=== PATIENT | male | born 1935 | race Caucasian/White ===

== ENCOUNTER 2017-03-22 09:10 | Observation (INO) | payer MEDICARE, OTHER ==
--- NOTE | 2017-03-22 11:55 | RAD ---
INDICATION: Fever COMPARISON: Chest x-ray January 26, 2017 TECHNIQUE: An AP portable view obtained at 0140 hours is submitted. FINDINGS: Bones/Soft Tissues: There are no acute bony findings. Cardiomediastinal: The cardiomediastinal silhouette is normal. Lungs: There are no infiltrates. Pleura: There are no pleural effusions. Other: None IMPRESSION: NO ACTIVE DISEASE
[2017-03-22] MEDS ORDERED: Ibuprofen TAB* 600 MG PO ONE (12:06)
[2017-03-22 12:18] LABS: Hematocrit 39 % (42-52); Mean Corpuscular HGB Conc 33 g/dl (31-36); Mean Corpuscular Hemoglobin 30 pg (27-31); Mean Corpuscular Volume 91 fL (80-94); Mean Platelet Volume 7 um3 (7.4-10.4); Red Blood Count 4.31 10^6/ul (4.0-5.4); Red Cell Distribution Width 14 % (10.5-15)
[2017-03-22 12:39] LABS: Albumin 3.2 g/dL (3.2-5.2); Calcium 8.5 mg/dL (8.6-10.3); EGFR African American 78.3 (>60); EGFR Non-African American 60.9 (>60); Potassium 4.2 mmol/L (3.5-5.0); Total Protein 6.2 g/dL (6.4-8.9)
[2017-03-22 12:43] LABS: Troponin I 0.04 ng/mL (<0.04)
[2017-03-22] MEDS: NS 0.9% 1000 ML* 2,000 ML IV ONE ×2 (12:48→12:49)
[2017-03-22 12:54] LABS: Urine Bacteria Absent (Absent); Urine Bilirubin Negative (Negative); Urine Glucose Negative (Negative); Urine Nitrite Negative (Negative)
[2017-03-22] MEDS ORDERED: Ondansetron INJ* 2 MG/ML VIAL IV PRN (13:44)
[2017-03-22] MEDS ORDERED: NS 0.9% 1000 ML* 1,000 ML IV SCH (13:45)
--- NOTE | 2017-03-22 14:14 | RAD ---
INDICATION: Intracranial injury COMPARISON: None TECHNIQUE: Noncontrast axial source images were acquired from the skull base to the vertex. FINDINGS: Ventricles/sulci: There is cortical atrophy with compensatory dilatation of the CSF spaces. Brain parenchyma: There is mild periventricular and subcortical white matter change compatible with chronic ischemia. Intracranial hemorrhage:None. Extra-axial spaces: There are no abnormal extra axial fluid collections or evidence of extra-axial mass. Calvarium: There is no calvarial fracture or other calvarial abnormality. Scalp: There is no evidence of scalp or extracalvarial soft tissue abnormality. Paranasal sinuses/mastoid: The paranasal sinuses and mastoid air cells are clear. Other: None. IMPRESSION: NO ACUTE INTRACRANIAL FINDINGS
--- NOTE | 2017-03-22 14:17 | RAD ---
INDICATION: Fall. Possible neck injury. COMPARISON: None TECHNIQUE: Noncontrast axial source images was performed from the skull base to the thoracic inlet. Coronal and and sagittal reformatted images were generated. FINDINGS: Vertebrae: There is no fracture or acute focal bony lesion. There are degenerative changes with disc space narrowing at C5-C6 and C6-C7. There is endplate sclerosis with multilevel facet arthropathy. Alignment: The craniocervical junction appears normal. The cervical vertebrae are normally aligned. Central Canal: There are no significant CT abnormalities of the central canal or foramina. MR imaging is a more sensitive method to evaluate the canal and foramina. Intervertebral disc spaces: The remaining disc spaces are maintained. Brain: The visualized brain appears unremarkable. Soft tissues: The visualized soft tissue elements of the neck are unremarkable. The prevertebral soft tissues appear normal. The lung apices are clear. 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 NO ACUTE FINDINGS
[2017-03-22 14:24] LABS: C Reactive Protein 180.7 mg/L (< 5.00)
[2017-03-22 14:54] LABS: Erythrocyte Sed Rate 80 mm/Hr (0-40)
[2017-03-22] MEDS: Heparin VIAL(*) 5000 UNITS/ML VIAL (FIVE THOUSAND) SUBCUT SCH ×2 (15:47→21:51)
[2017-03-22] MEDS: DOXYcycline CAP(*) 100 MG PO SCH ×2 (15:47→21:52)
[2017-03-22] MEDS: Calcium Carbonate CHEW TAB* 500 MG (TUMS) PO PRN ×2 (18:28→23:12)
[2017-03-22] MEDS: Acetaminophen TAB* 325 MG PO PRN (21:59)
--- NOTE | 2017-03-22 23:02 | HP ---
CC: Dr. Manriquez* HISTORY AND PHYSICAL: DATE OF ADMISSION: 03/22/17 PRIMARY CARE PROVIDER: Dr. Manriquez. ATTENDING PHYSICIAN WHILE IN THE HOSPITAL: Rani Diaz DO* (report dictated by Ap Larios NP). CHIEF COMPLAINT: 1. Fever. 2. Dizziness. 3. Fall. HISTORY OF PRESENT ILLNESS: Mr. Powell is an 82-year-old male patient. 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 He comes in to the ER today stating that the last 2 weeks, he has been increasingly fatigued, just not feeling well; to about a week and a half ago, he had pain, basically radiating from his neck down into his shoulders down to his legs that lasted a couple of days and then it has been gone away. He went and saw his primary for the fatigue. She sent off some basic lab work. It was noted that he was febrile there and it was also noted that CRP was 180. He was started on prednisone 20 mg a day, 10 mg p.o. b.i.d. He states that he has just not been feeling well. He has been feeling very fatigued. There has been no nausea, vomiting, or any dysuria or frequency. There has been no seizures or loss of consciousness. He says he has just been weak anytime he goes out to do anything. If he just mows his lawn, he feels like he has done a whole day's work and he is tired, and he has been sleeping more. There has been no headache currently, no neck pain. He denied any photophobia. There has been no vomiting. No abdominal pain. No cough. No chest pain. No recent trips or travel. He denies having any rashes or any joint aches with the exception that one day where he had pain all over, but no unilateral joint pain. There was concern though, because today he got up, he felt very dizzy and he actually fell to the floor. He did not hit his head or neck according to the patient. The was concerned because she heard a thud upstairs and she called Dr. Manriquez and it was noted at home that he had a fever of 102 and it was recommended that he come into the ER to be further evaluated for cultures and workup. PAST MEDICAL HISTORY: Significant for: 1. Hypertension. 2. History of PE secondary to an injury. 3. BPH. 4. Nephrolithiasis. 5. Spinal tumor. PAST SURGICAL HISTORY: 1. He has had a left and right total hip replacement. 2. He has had back surgeries. HOME MEDICATIONS: The only medicine he is currently taking is, prednisone 10 mg p.o. b.i.d., last dose was yesterday. ALLERGIES: To medications include CEPHALOSPORINS and PENICILLINS. FAMILY HISTORY: Both his parents, he said of old age according to him. SOCIAL HISTORY: He is a former smoker. He used to drink alcohol. He is . His surrogate decision maker is his . REVIEW OF SYSTEMS: There is a documented fever. Denied any significant weight change. There is no double vision. There is no ear discharge. He denies having any rhinorrhea. No sore throat. No thyroid enlargement. Denies having any chest pain. There is no orthopnea. There is no nocturnal dyspnea. There is no abdominal pain. No nausea, no vomiting. No dysuria, no frequency. There is no seizure, no loss of consciousness. No pruritus and no skin ulcerations. Review of 14 systems completed, all others negative. PHYSICAL EXAMINATION GENERAL: Mr. Powell is an 82-year-old male patient. He appears to be well nourished, well developed. He does not appear to be in any acute distress. HEENT: Head is atraumatic and normocephalic. Eyes: EOMs are intact. Sclerae are anicteric and not pale. Throat: Oral mucosa appears to be moist. No oropharyngeal erythema. NECK: Supple. LUNGS: Clear to auscultation bilaterally. No wheezes, rales, or rhonchi. HEART: Sounds S1 and S2, regular rate and rhythm. No murmurs, rubs, or gallops. ABDOMEN: Soft, flat, nontender. Bowel sounds are present. EXTREMITIES: Pulses were 2+ throughout. He had no focal joint tenderness, pain or rash. He is able to move all 4 extremities with 5/5 strength. NEUROLOGIC: Awake, alert, oriented x3. He had no meningeal signs. His correction officer city or county jail were equal. Tongue was midline. He had no gross focal deficits. SKIN: Intact. There was no rashes noted. LABORATORY DATA/DIAGNOSTIC STUDIES: His labs today revealed a WBC of 8.0, RBC of 4.31, hemoglobin 13.0, hematocrit 39, platelet count of 152,000. His INR was 1.07. PTT of 24.7. Sodium 134, potassium 4.2, chloride of 104, bicarb 21, BUN 23, creatinine 1.15, glucose 107, lactic 0.8, calcium 9.5, total bilirubin 1 , AST 35, ALT 29, alk phos 127, troponin 0.04, albumin was 3.2. Urine showed 2 + protein, 1+ blood, 2+ RBC. He did have a chest x-ray obtained today. Under my review, I did not appreciate any acute infiltrate. Radiology read it as no acute disease. He did have an EKG obtained today which showed a normal sinus rhythm with a rate of 76. No ST elevations or T-wave inversions were noted. Appeared to be a benign EKG. Old medical records were reviewed. ASSESSMENT AND PLAN: Mr. Powell is an 82-year-old male patient coming in to the ER today with complaints of fever and now had elevated troponin. He will admitted under observation status for: 1. Fever. Etiology of this is unclear. Flu swab was sent by the ER, but I think it was less likely given the rare flu season; however, I do think we should check a Lyme serology. We will get blood cultures. I am holding on antibiotics, because I do not have an obvious source. I did leave a message with our ID physician to see if there was any other recommendation that they may have. We are going to hydrate the patient. We will treat his fever empirically. This could be rheumatologic as well. I am going to check the ESR and CRP. According to the family, the CRP with Dr. Manriquez was 180. We will see if this is going up or down and we will continue to monitor. 2. Indeterminate troponin, etiology is unclear. It could just be demand ischemia from the elevated fevers, but he did have a dizzy spell today, so I will place him on telemetry, monitor this, and get an echocardiogram and cycle troponins. 3. Hypertension. Again, not an active issue currently. 4. History of pulmonary embolism, not an active issue. 5. Benign prostatic hypertrophy. He can follow with his primary. 6. History of spinal tumor. He will go ahead and continue to follow with his primary. 7. DVT prophylaxis. We will go ahead and put him on heparin subcu. 8. Code status. Full code. 9. Fluids, electrolytes, and nutrition. He can have a regular diet. TIME SPENT: Time spent on the admission was 60 minutes; greater than half the time spent [id number] with the patient obtaining my history and physical; other half time was spent going over the plan of care with the patient and implementing the plan of care. I did discuss the plan of care with my attending, Dr. Diaz, she is in agreement. AP LARIOS, PRISCILLA [id number]/[facility] #: [id number] PREETHI
[2017-03-23 05:26] LABS: Hematocrit 36 % (42-52); Hemoglobin 12.1 g/dl (14.0-18.0); Mean Corpuscular HGB Conc 34 g/dl (31-36); Mean Corpuscular Hemoglobin 31 pg (27-31); Mean Corpuscular Volume 91 fL (80-94); Mean Platelet Volume 7 um3 (7.4-10.4); Red Blood Count 3.97 10^6/ul (4.0-5.4); Red Cell Distribution Width 15 % (10.5-15); White Blood Count 7.5 10^3/ul (3.5-10.8)
[2017-03-23 05:56] LABS: BUN/Creatinine Ratio 19.1 (8-20); Calcium 8.1 mg/dL (8.6-10.3); EGFR African American 78.3 (>60); EGFR Non-African American 60.9 (>60)
[2017-03-23] MEDS: Heparin VIAL(*) 5000 UNITS/ML VIAL (FIVE THOUSAND) SUBCUT SCH ×2 (06:16→15:05)
[2017-03-23] MEDS: Acetaminophen TAB* 325 MG PO PRN ×2 (06:20→16:41)
[2017-03-23 06:27] LABS: Potassium 4.3 mmol/L (3.5-5.0)
[2017-03-23] MEDS: DOXYcycline CAP(*) 100 MG PO SCH (09:30)
[2017-03-23 10:37] LABS: C Reactive Protein 193.73 mg/L (< 5.00)
--- NOTE | 2017-03-23 16:47 | DS ---
DOA: 03/22/2017 DOD: 03/23/2017 Care Team: Admitting Provider: Dr. Rani Diaz Infectious disease consultation: Dr. Yariel Haque Attending Provider: Bharat Lomas PA-C Discharge Provider: HUY Muir PCP: Dr. Orlando Manriquez Discharge diagnosis: 1) Fever without a source, perceived due to lyme disease. Secondary diagnosis: 1) HTN 2) BPH 3) Hx of PE 4) Hx of nephrolithiasis 5) Hx of benign spinal tumor Discharge medications: Doxycycline PO 100mg BID X20 days Changes in home medications: Start Doxycycline Imaging: CXR: No active cardiopulmonary disease EKG: NSR Brain CT: No acute intracranial findings Cervical spine CT: Mild osteoarthritic changes with no acute findings. Transthoracic echo: Preliminary reading intact EF with no valvular disease or hypertrophy. Hospital course: This is a 82 yo white male with HTN, BPH, hx of PE, spinal tumor, and nephrolithiasis that came to he ER with complaints of 1.5 days of fever with lightheadness after fall in his home. Patient has felt weak for the last two weeks with shoulder, neck, back, and hip pain with elevated CRP for which he saw his PCP for and was prescribed predisone 20mg PO for 3 days which immediately relieved the pain. Patient fell at home yesterday after feeling dizzy but denies injury. Brain CT and Cervical spine CT were ordered due to hx of neck pain and patient fall, both negative. Patient was admitted to determine source of fever and CBC was WNL with no leukocytosis, Troponins were indeterminate as first and second were 0.04 and third was negative at 0.03, ESR elevated at 80 and C-reactive protein at 127. CXR showed no active disease and EKG showed NSR with no signs of heart block. The rest of CMP was essentially within normal limits with UA negative for infection. He denied any SOB, chest pains, photophobia, rash, recent travel, joint pain, or abdominal symptoms. He was admitted to telemetry floor to monitor. Patient spiked fevers a few times throughout hospital course but was managed with Tylenol. Flu swab came back negative, initial blood cultures came back negative, creatinine kinase of 40, RAPHAEL, RF, and lyme serology still pending. With infectious disease consult, patient was started empirically on Doxycycline with suspicion of lyme disease and some symptomatic improvement and given patient presentation and hx of being outdoors and negative workup. He will resume doxycycline 100 mg BID for 20 additional days outpatient. Follow up plan/disposition: Patient will be discharged home to his . He will resume oral doxycycline and follow up with PCP in the next 1-2 weeks.
--- NOTE | 2017-03-23 18:02 | ECHO ---
Patient: SEBASTIEN WEBB [facility] Rec#: [id number] : 1935 Date: 03/23/2017 Age: 82y Height: 180.34 cm / 71.0 in Weight: 81.65 kg / 180.0 lbs Sex: M BSA: 2.02 Room#: 448 Admit Date#: 03/22/2017 Type: Inpatient Referring: Ap Larios NP Reading: Klaus Christian MD Personnel Analyst: Alis Yeboah RDCS,RDMS CC: Orlando Manriquez MD Transthoracic Echocardiogram Indication: Fever, Elevated Trop BP: 121/55 HR: 75 Rhythm: NSR Findings History: HTN, PE, former smoker Technical Comments: The study quality is fair. Completed 1510 Left Ventricle: The left ventricular chamber size is normal. Mild concentric left ventricular hypertrophy is observed. Global left ventricular wall motion and contractility are within normal limits. There is normal left ventricular systolic function. The estimated ejection fraction is 60-65%. There is an E to A reversal in the mitral valve flow pattern suggestive of diastolic dysfunction. Left Atrium: The left atrial chamber size is normal. Right Ventricle: The right ventricular chamber size and systolic function are within normal limits. The right ventricle wall thickness is mildly increased. Right Atrium: The right atrium is mildly dilated. Aortic Valve: The aortic valve leaflets are mildly thickened. There is no evidence of aortic regurgitation. There is no evidence of aortic stenosis. Mitral Valve: The mitral valve leaflets appear normal. There is a trace of mitral regurgitation. There is no evidence of mitral stenosis. Tricuspid Valve: The tricuspid valve leaflets are normal. There is trace tricuspid regurgitation. Pulmonic Valve: The pulmonic valve structure is not well visualized. Pericardium: There is no significant pericardial effusion. Aorta: The aortic root appears normal. There is no dilatation of the aortic arch. Pulmonary Artery: The main pulmonary artery is not well visualized. Venous: The inferior vena cava appears normal in size. There is a greater than 50% respiratory change in the inferior vena cava dimension. Conclusions Global left ventricular wall motion and contractility are within normal limits. There is normal left ventricular systolic function. The estimated ejection fraction is 60-65%. There is no evidence of aortic stenosis. There is a trace of mitral regurgitation. There is trace tricuspid regurgitation. There is no significant pericardial effusion. Measurements Name Value Normal Range RVIDd (AP) 2D 2.2 cm (0.9 - 2.6) RVDdMajor (2D) 3.1 cm (2.2 - 4.4) RAd ISD 4CH 5.4 cm (3.4 - 4.9) RA (A4C)W 4.8 cm (2.9 - 4.6) IVSd (2D) 1.3 cm (0.6 - 1) LVPWd (2D) 1.3 cm (0.6 - 1) LVIDd (2D) 4 cm (3.6 - 5.4) LVIDs (2D) 2.8 cm - LV FS (2D) 30 % (25 - 45) Aortic Annulus 2.3 cm (1.4 - 2.6) Ao root diameter (2D) 3.3 cm (2.1 - 3.5) Ascending Ao 2.9 cm (2.1 - 3.4) Aortic arch 3.1 cm (1.8 - 3.4) LA dimension (AP) 2D 3.2 cm (2.3 - 3.8) LAd ISD 4CH 5.7 cm (2.9 - 5.3) LA ISD 4CH W 3.7 cm (2.5 - 4.5) Name Value Normal Range LA ESV SP 4CH (A/L) 55.63 ml - LA ESV SP 2CH (A/L) 52.9 ml - LA ESV BP (A/L) 56.96 ml - LA ESV BP (A/L) index 28 ml/m2 - LA ESV SP 4CH (MOD) 50.32 ml - LA ESV SP 2CH (MOD) 49.95 ml - Name Value Normal Range MV E-wave Vmax 0.7 m/sec - MV deceleration time 213 msec - MV A-wave Vmax 0.9 m/sec - MV E:A ratio 0.8 ratio - P. vein S-wave Vmax 0.3 m/sec - P. vein D-wave Vmax 0.4 m/sec - P. vein S:D Vmax ratio 0.8 ratio - P. vein A-wave duration 79.6 msec - LV septal e' Vmax 0.07 m/sec - LV lateral e' Vmax 0.08 m/sec - LV E:e' septal ratio 10 ratio - LV E:e' lateral ratio 9 ratio - Name Value Normal Range AV Vmax 1.6 m/sec - AV VTI 25 cm - AV peak gradient 10 mmHg - AV mean gradient 6.1 mmHg - LVOT Vmax 1.5 m/sec - LVOT VTI 22.9 cm - LVOT peak gradient 9 mmHg - LVOT mean gradient 4.5 mmHg - MARY Vmax 0.8 m/sec - Name Value Normal Range RAP 8 mmHg - IVC diameter 1.7 cm - Name Value Normal Range PV Vmax 1.1 m/sec - PV peak gradient 5 mmHg -
[2017-03-23 18:09] VITALS: BP 134/54
--- NOTE | 2017-03-23 18:28 | CONS ---
CONSULTATION REPORT: DATE OF CONSULT: 03/23/17 REQUESTING PROVIDER: Ap Larios NP CONSULTING SERVICE: Infectious Disease. REASON FOR CONSULT: Fever, neck pain. IMPRESSION: 1. Two weeks of fatigue, diffuse muscle and joint aches, fever, headache, neck pain, elevated C-reactive protein. He spends a lot of time outdoors at this time of the year in this area, Lyme infection is high in the differential. He has not had a rash at this point, he may have had one earlier and missed it or he may have been in the percentage that do not end up having the rash. His blood culture is negative. He has no urinary symptoms. His chest x-ray is clear. He has got no lungs or chest symptoms. He has bilateral hip arthroplasties, but they are asymptomatic and nothing else at this point is coming up as a cause for his symptoms. He has had 12 hours of doxycycline and has had improvement in some of his symptoms. 2. Benign prostatic hypertrophy. 3. ALLERGIC TO KEFLEX and PENICILLIN. RECOMMENDATION: Continue doxycycline 100 mg by mouth twice a day for 10 more days. He and his agreed to return if any worsening fever, neck pain, or headache comes back. HISTORY OF PRESENT ILLNESS: This is an 82-year-old man admitted with a fall at home. He had been well until 2 weeks ago, he developed dyspnea on exertion, generalized fatigue, shoulder and neck pain and aches. He was seen by his primary physician, who obtained a C-reactive protein that was grossly abnormal. He was started on prednisone for a possible polymyalgia rheumatica. He did have some decrease in his neck and shoulder aching, but then a few days later, he developed fever, headache, and the headache was mostly on the top of his skull. Then, on the day of admission, he fell while changing his clothes. He did not lose consciousness or hit his head. He just felt dizzy. He was febrile to 101 at that point. His physician recommended he come to the ER. He was normotensive and febrile to 39.9 degrees and blood cultures were sent and are negative 24 hours, influenza PCR was negative, his white blood cell count was 7, troponin 0.04, CRP 180. He is on telemetry. This morning, he has improved energy. The appetite is good. He has been up and walking around to the bathroom. He has no cough, trouble breathing, abdominal pain, diarrhea, urinary frequency, or dysuria. He has not noticed a rash in his neck. His shoulder pain has gone. He still has pain on the top of his head, but that has improved as well. He had a fever overnight, no chills or sweats this morning. He has never had anything like this before. He had bilateral hip arthroplasties and he does not have pain with weightbearing. PAST MEDICAL HISTORY: 1. Status post resection of lumbar spine tumor. 2. Status post bilateral hip arthroplasties. 3. Hypertension. 4. PE. 5. Benign prostatic hypertrophy. 6. Nephrolithiasis. MEDICATIONS: 1. Tylenol. 2. Calcium carbonate. 3. Heparin subcutaneous injections. 4. Zofran. 5. Doxycycline 100 mg by mouth twice daily. ALLERGIES: CEPHALOSPORIN and PENICILLIN. FAMILY HISTORY: No recurrent infections. SOCIAL HISTORY: He lives in [place]. He spends a lot of time outdoors in the yard and in the garden. No foreign travel. He did have a great-grandchild visiting recently who had a upper respiratory infection. No other sick contacts. REVIEW OF SYSTEMS: All negative to full review of systems except as noted above. PHYSICAL EXAM: Vital Signs: Temperature is 37, heart rate 90, respiratory rate 20, blood pressure 120/60, O2 sat 92% on room air. General: He is awake, not in distress. Neurologic: He is oriented x3, follows all commands. Cranial nerves II through XII are intact. HEENT: There is no conjunctival hemorrhage. Oropharynx without lesions. Neck: Neck is supple without nuchal rigidity. Lymph Nodes: There is no cervical or inguinal lymphadenopathy. Heart has regular rate and rhythm without murmurs, rubs, or gallops. Lungs are clear to auscultation bilaterally. Abdomen: Soft, nontender, and nondistended. There is no hepatosplenomegaly. There are bowel sounds present. Skin: There is no rash or splinter hemorrhages. Musculoskeletal: There is no spine tenderness to palpation or joint synovitis. LABORATORY DATA: Creatinine 1.1. CRP 190. White blood cell count 7, hemoglobin 12, platelets 136, MCV is 90, sed rate is 80. Please see impressions and recommendations outlined above. Thanks for asking me to see Mr. Powell in consultation. [id number]/[facility] #: [id number] [facility] HOSPITALVickey
--- NOTE | 2017-03-24 13:23 | DS ---
CC: Dr. Orlando Manriquez* DISCHARGE SUMMARY: DATE OF ADMISSION: 03/22/17 DATE OF DISCHARGE: 03/23/17 PRIMARY CARE PROVIDER: Dr. Orlando Manriquez. CONSULTING INFECTIOUS DISEASE SPECIALIST: Dr. Yariel Haque. DISCHARGING PROVIDER: SHERLEY Chilel SUPERVISING PHYSICIAN: Dr. Magda Caballero * (DICTATED BY SHERLEY CHILEL) PRIMARY DISCHARGE DIAGNOSES: 1. Febrile illness - suspected Lyme disease. 2. Presyncope, likely secondary to fever and acute illness. 3. Mildly elevated troponin - likely demand related without evidence of acute coronary syndrome. SECONDARY DISCHARGE DIAGNOSES: 1. Hypertension without home medications. 2. Remote history of pulmonary embolism. 3. Benign prostatic hyperplasia. 4. Remote history of spinal tumor, which was reportedly benign. DISCHARGE MEDICATIONS: Doxycycline 100 mg p.o. b.i.d. x20 days. Medication changes: No prior home medications. HOSPITAL IMAGIN. Chest x-ray shows no acute disease. 2. CTA of the brain shows no acute process. 3. CT of the cervical spine shows degenerative changes, but no acute process. 4. EKG shows sinus rhythm without acute ischemic changes. 5. Transthoracic echocardiogram - preliminary reading shows some mild LVH. No significant valvular dysfunction and an intact left ventricular ejection fraction, but final read is pending at the time of discharge. HOSPITAL COURSE: This is a very pleasant 82-year-old gentleman with a history of hypertension, BPH for which he is on no home medications, who presented to the emergency department with complaints of fever, dizziness, and fall that he sustained at home earlier today. He has been complaining of 2 weeks of fatigue as well as pain in his neck and shoulders and some generalized arthralgias. He was seen by his primary care provider with these complaints. At that point, an elevated CRP was noted and prednisone was started assuming concerns for PMR. The patient reports that his arthralgias improved with the prednisone, but he later developed fever and had presyncopal symptoms with the fever. He was subsequently evaluated in the emergency department with these complaints and was noted to have no leukocytosis, but significantly elevated CRP to 180, sed rate of 80. The remainder of his chemistries was unremarkable. Influenza testing was negative. Urinalysis was unremarkable. Based on his constellation of symptoms, the patient was empirically treated for Lyme disease with doxycycline. He reported some improvement in symptoms and the frequency of his fevers seemed to improve after initiating doxycycline therapy. The patient does not recall a history of rashes. He does spend a significant amount of time outside. His EKG is specifically did not demonstrate heart block. The patient was evaluated by infectious disease specialist, who agreed with empiric treatment for Lyme with serologies pending at the time of discharge. DISPOSITION AND FOLLOWUP PLAN: The patient is being discharged to home where he lives with his . The patient has been discharged with doxycycline as noted above and recommend close followup with his primary care provider. At the time of discharge, Lyme serology is pending as well as rheumatoid factor and an RAPHAEL. SHERLEY CHILEL [id number]/[facility] #: [id number] PREETHI
[2017-03-25 15:47] LABS: Rheumatoid Factor <15 IU/mL (<15)
--- NOTE | 2017-03-29 23:13 | ED ---
Rossy Garza Auryana, scribed for Tone Shaikh MD on 03/22/17 at 1400 . Complex/Multi-Sys Presentation - HPI Summary HPI Summary: 82 year old male presents with fever (102), and increasing fatigue starting this morning. He also has a AGUERO - reports "at the skull", and denies any radiation. reports weight loss recently - about 5 lbs. reports that he has been on prednisone since thursday - 2 days ago. He denies photophobia, cough, CP, N/V/D, abdominal pain, myalgia, dyuria, or any burning/increased urination. He has received a flu shot this season. 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 Dr. Manriquez is his PCP. - History Of Current Complaint Chief Complaint: EDFever Time Seen by Provider: 03/22/17 11:28 Hx Obtained From: Patient Onset/Duration: Gradual Onset Timing: Constant Severity Currently: Mild Severity Initially: Mild Location: Pain At: - AGUERO Associated Signs And Symptoms: Positive: Headache, Fever, Other - fatigue. Negative: Chest Pain, Nausea, Vomiting, Diarrhea - Allergies/Home Medications Allergies/Adverse Reactions: Allergies Allergy/AdvReac Type Severity Reaction Status Date / Time Cephalexin [From Keflex] Allergy Unknown Verified 07/27/14 20:39 Reaction Details Penicillins [PCN] Allergy Unknown Verified 07/27/14 20:39 Reaction Details PMH/Surg Hx/FS Hx/Imm Hx Endocrine/Hematology History: Denies: Hx Diabetes Cardiovascular History: Denies: Hx Congestive Heart Failure, Hx Hypertension Respiratory History: Denies: Other Respiratory Problems/Disorders History: Denies: Hx Renal Disease - Surgical History Surgery Procedure, Year, and Place: BILATERAL HIP/SPINE Infectious Disease History: No Infectious Disease History: Denies: Traveled Outside the [place] in Last 30 Days - Family History Known Family History: Positive: Cardiac Disease, Hypertension - Social History Alcohol Use: None Substance Use Type: Reports: None Smoking Status (MU): Former Smoker Review of Systems Positive: Fever, Fatigue, Other - weightloss. Negative: Chills Eyes: Negative Negative: Erythema ENT: Negative Negative: Sore Throat Cardiovascular: Negative Negative: Chest Pain Respiratory: Negative Negative: Shortness Of Breath, Cough Gastrointestinal: Negative Negative: Abdominal Pain, Vomiting, Nausea Genitourinary: Negative Negative: dysuria, hematuria Musculoskeletal: Negative Negative: Myalgia, Edema Skin: Negative Negative: Rash Neurological: Other - no dizziness Positive: Headache Psychological: Normal All Other Systems Reviewed And Are Negative: Yes Physical Exam - Summary Physical Exam Summary: Constitutional: Well-developed, Well-nourished, Alert. (-) Distressed Skin: Warm, Dry HENT: Normocephalic; Atraumatic Eyes: Conjunctiva normal Neck: Musculoskeletal ROM normal neck. (-) JVD, (-) Stridor, (-) Tracheal deviation. no meningimus - no suspicion for meningitis. Cardio: Rhythm regular, rate normal, Heart sounds normal; Intact distal pulses; The pedal pulses are 2+ and symmetric. Radial pulses are 2+ and symmetric. (-) Murmur Pulmonary/Chest wall: Effort normal. (-) Respiratory distress, (-) Wheezes. Crackles in the right lower lung field Abd: Soft, (-) Tenderness, (-) Distension, (-) Guarding, (-) Rebound Musculoskeletal: (-) Edema. Lymph: (-) Cervical adenopathy Neuro: Alert, Oriented x3 Psych: Mood and affect Normal. Triage Information Reviewed: Yes Vital Signs On Initial Exam: Initial Vitals Temp Pulse Resp BP Pulse Ox 101.8 F 81 16 136/65 93 03/22/17 09:25 03/22/17 09:25 03/22/17 09:25 03/22/17 09:25 03/22/17 09:25 Vital Signs Reviewed: Yes Diagnostics - Vital Signs Vital Signs Temp Pulse Resp BP Pulse Ox 03/22/17 11:34 103.9 F 03/22/17 11:30 76 25 137/78 95 03/22/17 11:00 76 25 132/79 95 03/22/17 10:50 76 21 96 03/22/17 10:49 135/77 03/22/17 10:28 100.4 F 77 16 125/61 94 03/22/17 09:25 101.8 F 81 16 136/65 93 - Laboratory Result Diagrams: 03/22/17 11:56 03/22/17 11:56 Lab Statement: Any lab studies that have been ordered have been reviewed, and results considered in the medical decision making process. - Radiology CXR Xray Interpretation: No Acute Changes Radiology Interpretation Completed By: Radiologist - CT CERVICAL SPINE CT Interpretation: Positive (See Comments) - IMPRESSION: MILD MID TO LOWER CERVICAL OSTEOARTHRITIC CHANGE. NO ACUTE FINDINGS CT Interpretation Completed By: Radiologist BRAIN CT Interpretation: No Acute Changes CT Interpretation Completed By: Radiologist - EKG 10:51 EKG Interpretation: SINUS RYHT AT 76 NO STEMI Complex Multi-Symp Course/Dx Course Of Treatment: 82 year old male presents with fever (102), and increasing fatigue starting this morning. He also has a AGUERO - reports "at the skull", and denies any radiation. reports weight loss recently - about 5 lbs. reports that he has been on prednisone since thursday - 2 days ago. He denies photophobia, cough, CP, N/V/D, abdominal pain, myalgia, dyuria, or any burning/increased urination. He has received a flu shot this season. 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 Dr. Manriquez is his PCP. EKG -. Blood work WNL except APTT 24.7, CO2 21, Glucose 107, Troponin 0.04, alk phos. 127,. Lactic acid 0.8. UA Blood +1, rbc 2+, Protein 2+. EKG - SINUS RYHTHM AT 76 NO STEMI. CXR - NAD. CT cervical . Brain CT . Patient refused spinal tap recommended by Ap Larios due to past spinal surgery. [place] [facility] [place] Dx of fever with unknown origin. - Diagnoses Differential Diagnoses/HQI/PQRI: Urinary Tract Infection, Other - VIRAL SYNDROME , INFLUENZA Provider Diagnoses: Fever of unknown origin - Physician Notifications Discussed Care Of Patient With: Ap Larios Time Discussed With Above Provider: 13:56 - AGREES TO ADMIT Discharge - Discharge Plan Condition: Stable Disposition: ADMITTED TO [facility] documentation as recorded by the Rossy leos Auryana accurately reflects the service I personally performed and the decisions made by me, Tone Shaikh MD.
== END 2017-03-23 18:26 | disposition home or self-care (01) ==
LOC: ED 09:10 → MEDTELE 13:42
PROVIDERS: ADMIT Hospitalist; ATTEND Internal Medicine
DX: R50.9 Fever, unspecified (principal); R55 Syncope and collapse; R42 Dizziness and giddiness; R74.8 Abnormal levels of other serum enzymes; I10 Essential (primary) hypertension; Z86.711 Personal history of pulmonary embolism; I49.1 Atrial premature depolarization; N40.0 Benign prostatic hyperplasia without lower urinary tract symptoms; Z88.0 Allergy status to penicillin; Z88.1 Allergy status to other antibiotic agents
CPT/HCPCS: 36415; 70450; 71010; 72125; 80048; 80053; 81003; 81015; 82550; 83605; 84484; 85025; 85610; 85652; 85730; 86038; 86140; 86431; 86618; 87040; 87086; 87502; 93005; 93306; 96360; 96361; 96372; 99284; A9270-GY; G0378; J1644

== ENCOUNTER 2019-02-07 22:07 | Emergency (ER) | payer MEDICARE, OTHER ==
[2019-02-07] MEDS ORDERED: Tetan/Diph/Pertus SYR(Tdap)* 0.5 ML SYR(BOOSTRIX) use SYR IM ONE (23:11)
[2019-02-07] MEDS ORDERED: Sulfamethox/Trimethoprim DS 800/160* TAB PO ONE (23:11)
--- NOTE | 2019-02-07 23:14 | ED ---
Laceration/Wound HPI - HPI Summary HPI Summary: Patient complains of mechanical fall tonight with subsequent laceration over left eyebrow. Patient states he fell on a carpet and his face slid along the carpet. Denies LOC, AGUERO, vision change, N/V, AMS, neck pain, any other pain injury or symptoms. Family agrees no AMS. No anti-coag. Tetanus status unknown. Recent history of 4 weeks of immunosuppressants for non-Hodgkin's lymphoma. 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 Mechanism of Injury: Sharp/Blunt Trauma Onset Severity: Mild Current Severity: None Pain Intensity: 0 Pain Scale Used: 0-10 Numeric Associated Signs & Symptoms: Negative - Additional Pertinent History Primary Care Physician: RYDER - Allergy/Home Medications Allergies/Adverse Reactions: Allergies Allergy/AdvReac Type Severity Reaction Status Date / Time cephalexin Allergy Unknown Verified 01/19/19 09:47 Reaction Details levofloxacin [From Levaquin] Allergy Joint Pain Verified 02/07/19 22:10 Penicillins Allergy Unknown Verified 01/19/19 09:47 Reaction Details PMH/Surg Hx/FS Hx/Imm Hx Endocrine/Hematology History: Denies: Hx Diabetes Cardiovascular History: Reports: Other Cardiovascular Problems/Disorders - PE per most recent scanned H+P Denies: Hx Congestive Heart Failure, Hx Hypertension Respiratory History: Denies: Other Respiratory Problems/Disorders History: Reports: Hx Benign Prostatic Hyperplasia - per most recent scanned H +P Denies: Hx Renal Disease Musculoskeletal History: Reports: Hx Arthritis Sensory History: Reports: Hx Contacts or Glasses - glasses Denies: Hx Hearing Aid Opthamlomology History: Reports: Hx Contacts or Glasses - glasses EENT History: Denies: Hx Deafness Neurological History: Denies: Hx Dementia Psychiatric History: Denies: Hx Autism - Surgical History Surgery Procedure, Year, and Place: BILATERAL CESAR. SPINE Infectious Disease History: No Infectious Disease History: Denies: Traveled Outside the [place] in Last 30 Days - Family History Known Family History: Positive: Cardiac Disease, Hypertension - Social History Alcohol Use: None Substance Use Type: Reports: None Smoking Status (MU): Former Smoker Review of Systems Constitutional: Negative Eyes: Negative ENT: Negative Cardiovascular: Negative Respiratory: Negative Gastrointestinal: Negative Genitourinary: Negative Musculoskeletal: Negative Skin: Other Neurological: Negative Psychological: Normal All Other Systems Reviewed And Are Negative: Yes Physical Exam - Summary Physical Exam Summary: Laceration above left eyebrow. Neuro exam normal. No other trauma noted to mouth, face or head. Full range of motion of neck and jaw. No pain with palpation of neck, back, chest wall, abdomen. Patient was upper extremities freely without any indication of pain. Triage Information Reviewed: Yes Vital Signs On Initial Exam: Initial Vitals Temp Pulse Resp BP Pulse Ox 98.4 F 84 15 151/81 96 02/07/19 22:09 02/07/19 22:09 02/07/19 22:09 02/07/19 22:09 02/07/19 22:09 Vital Signs Reviewed: Yes Appearance: Positive: Well-Appearing Skin: Positive: Warm Head/Face: Positive: Normal Head/Face Inspection Eyes: Positive: Normal ENT: Positive: Normal ENT inspection Dental: Negative: Dental Fracture @, Bleeding Neck: Positive: Supple Respiratory/Lung Sounds: Positive: Clear to Auscultation Cardiovascular: Positive: Normal Abdomen Description: Positive: Nontender Musculoskeletal: Positive: Normal Neurological: Positive: Normal Psychiatric: Positive: Normal AVPU Assessment: Alert - Keymar Coma Scale Best Eye Response: 4 - Spontaneous Best Motor Response: 6 - Obeys Commands Best Verbal Response: 5 - Oriented Coma Scale Total: 15 Procedures - Laceration/Wound Repair 1 Location: face Description: Linear Anesthesia: Local Length, Depth and Shape: 2cm x 1cm Betadine Prep?: Yes Irrigated w/ Saline (ccs): 200 Laceration/Wound Explored: clean Debridement: minimal Number of Sutures: 4 - 6.0 ethilon Layer Closure?: No Sterile Dressing Applied?: No Diagnostics - Vital Signs Vital Signs Temp Pulse Resp BP Pulse Ox 02/07/19 22:09 98.4 F 84 15 151/81 96 - Laboratory Lab Statement: Any lab studies that have been ordered have been reviewed, and results considered in the medical decision making process. Laceration Repair Course/Dx - Course Course Of Treatment: Patient complains of mechanical fall tonight with subsequent laceration over left eyebrow. Patient states he fell on a carpet and his face slid along the carpet. Denies LOC, AGUERO, vision change, N/V, AMS, neck pain, any other pain injury or symptoms. Family agrees no AMS. No anti- coag. Tetanus status unknown. Recent history of 4 weeks of immunosuppressants for non-Hodgkin's lymphoma. Physical exam:Laceration above left eyebrow. Neuro exam normal. No other trauma noted to mouth, face or head. Full range of motion of neck and jaw. No pain with palpation of neck, back, chest wall, abdomen. Patient was upper extremities freely without any indication of pain. Vital signs within normal limits. Wound sutured. Tetanus booster administered. Patient placed on Bactrim. Patient and family understand an appropriate plan. - Clinical Impression Provider Diagnoses: Fall, Laceration Discharge - Sign-Out/Discharge Documenting (check all that apply): Patient Departure Patient Received Moderate/Deep Sedation with Procedure: No - Discharge Plan Condition: Stable Disposition: HOME Prescriptions: Sulfamethox/Trimethoprim DS* [Bactrim DS 800/160 TAB*] 1 tab PO BID 10 Days #20 tab Patient Education Materials: Care For Your Stitches (ED), Facial Laceration (ED ) Referrals: Sugar Lockett NP [Primary Care Provider] - Additional Instructions: Take antibiotics as directed. Sutures out in 5 days. Starting tomorrow you may shower with warm running water and soap. Do not submerge face underwater. Keep wound clean and dry. Return to the ED for any new or worsening symptoms. - Billing Disposition and Condition Condition: STABLE Disposition: Home
[2019-02-08 00:09] VITALS: BP 132/72
== END 2019-02-08 00:12 | disposition home or self-care (01) ==
LOC: ED 22:07
DX: S01.112A Laceration without foreign body of left eyelid and periocular area, initial encounter (principal); W19.XXXA Unspecified fall, initial encounter; Y92.9 Unspecified place or not applicable; C85.90 Non-Hodgkin lymphoma, unspecified, unspecified site; Z23 Encounter for immunization; Z88.0 Allergy status to penicillin; N40.0 Benign prostatic hyperplasia without lower urinary tract symptoms; Z87.891 Personal history of nicotine dependence
CPT/HCPCS: 12011; 90471; 90715; 99282; A9270-GY